=== PATIENT | male | born 1960 | race Asian ===

== ENCOUNTER 2021-05-21 21:41 | Emergency (ER) | payer OTHER ==
[~2021-05-21] VITALS: Ht 160 cm; Wt 72.6 kg
[2021-05-21 21:41] VITALS: BP 168/107
== END 2021-05-22 02:56 | disposition home or self-care (01) ==
LOC: ER 21:43
DX: M47.812 Spondylosis without myelopathy or radiculopathy, cervical region (principal); R51.9 Headache, unspecified; I10 Essential (primary) hypertension; V43.52XA Car driver injured in collision with other type car in traffic accident, initial encounter; Y93.89 Activity, other specified; Y92.410 Unspecified street and highway as the place of occurrence of the external cause; Y99.8 Other external cause status
CPT/HCPCS: 70450; 72125